=== PATIENT | male | born 1975 | race Two or more races ===

== ENCOUNTER 2020-04-29 10:39 | Outpatient (CLI) | payer OTHER | END 2020-04-29 12:00 | disposition home or self-care (01) | LOC: OFIC 805 10:39 | PROVIDERS: ATTEND Otolaryngology Otology & Neurotology | DX: R19.6 Halitosis (principal); G47.33 Obstructive sleep apnea (adult) (pediatric); K21.9 Gastro-esophageal reflux disease without esophagitis ==